=== PATIENT | male | born 1990 | race Caucasian/White ===

== ENCOUNTER 2016-09-05 03:29 | Emergency (ER) | payer OTHER ==
[~2016-09-05] VITALS: Ht 175.3 cm; Wt 134.0 kg
[~2016-09-05 03:29] MED LIST: LIDOCAINE HCL20 ML MM; MOTRIN600 MG PO
[2016-09-05] MEDS ORDERED: TRAMADOL HCL50 MG PO (04:58)
[2016-09-05] MEDS ORDERED: MOTRIN600 MG PO (04:58)
[2016-09-05 05:26] VITALS: BP 127/71
== END 2016-09-05 05:36 | disposition home or self-care (01) ==
LOC: EME 03:29
DX: S93.402A Sprain of unspecified ligament of left ankle, initial encounter (principal); W17.89XA Other fall from one level to another, initial encounter; Y99.0 Civilian activity done for income or pay; F17.200 Nicotine dependence, unspecified, uncomplicated
CPT/HCPCS: 73610; 99281; 99284

== ENCOUNTER 2017-08-06 02:33 | Emergency (ER) | payer OTHER ==
[~2017-08-06] VITALS: Ht 175.3 cm; Wt 127.0 kg
[~2017-08-06 02:33] MED LIST changes: +TRAMADOL HCL50 MG PO
[2017-08-06] MEDS ORDERED: KLONOPIN0.5 M1 PO (04:20)
[2017-08-06 04:46] VITALS: BP 117/73
== END 2017-08-06 04:51 | disposition home or self-care (01) ==
LOC: EME 02:33
DX: F41.9 Anxiety disorder, unspecified (principal); Z63.4 Disappearance and death of family member; Z82.41 Family history of sudden cardiac death; F17.200 Nicotine dependence, unspecified, uncomplicated
CPT/HCPCS: 99281; 99284

== ENCOUNTER 2017-08-24 06:10 | Emergency (ER) | payer OTHER ==
[~2017-08-24] VITALS: Ht 175.3 cm; Wt 127.0 kg
[~2017-08-24 06:10] MED LIST changes: +KLONOPIN0.5 M1 PO
[2017-08-24 07:03] LABS: HEMATOCRIT 46.6 % (38.0-50.0); HEMOGLOBIN 15.7 G/DL (12.5-16.6); MCH 29.3 PG (29.0-34.0); MCHC 33.7 G/DL (30.0-36.0); MCV 86.9 FL (86-99); PLATELET COUNT 242 K/uL (156-360); RBC DIS.WIDTH-CV 12.3 % (11.8-14.6); RBC DIS.WIDTH-SD 38.7 % (39-53); RED BLOOD COUNT 5.36 M/uL (4.00-5.50); WHITE BLOOD COUNT 8.6 K/uL (4.1-10.2)
[2017-08-24 07:14] LABS: CHLORIDE 107 mEq/L (99-109); SODIUM 139 mEq/L (136-147)
[2017-08-24 07:16] LABS: GLUCOSE 92 mg/dL (70-99)
[2017-08-24 07:17] LABS: TOTAL PROTEIN 7.7 g/dL (6.4-8.3)
[2017-08-24 07:18] LABS: TOTAL BILIRUBIN 0.7 mg/dL (0.0-1.0)
[2017-08-24 07:20] LABS: ALKALINE PHOSPHATASE 57 IU/L (3-129); CREATININE 0.9 mg/dL (0.6-1.3); GFR ESTIMATE (CALCULATED) > 59 mL/min/ (58.99-99999)
[2017-08-24 07:21] LABS: UREA NITROGEN (BUN) 12 mg/dL (9-23)
[2017-08-24 07:22] LABS: AST (GOT) 40 IU/L (2-34)
[2017-08-24 07:23] LABS: ALT (GPT) 40 IU/L (3-49)
[2017-08-24] MEDS ORDERED: ZITHROMAX Z-PA250 MG PO (09:26)
[2017-08-24] MEDS ORDERED: VENTOLIN HFA18 GM IH (09:26)
[2017-08-24 09:46] VITALS: BP 118/67
== END 2017-08-24 09:52 | disposition home or self-care (01) ==
LOC: EME 06:10
PROVIDERS: Emergency Medicine
DX: J20.9 Acute bronchitis, unspecified (principal); F17.200 Nicotine dependence, unspecified, uncomplicated
CPT/HCPCS: 71020; 80053; 85027; 93005; 94640; 99281; 99285